=== PATIENT | male | born 1955 | race Caucasian/White ===

== ENCOUNTER → 2016-11-15 | Outpatient (CLI) | payer OTHER ==
[~2016-11-15] MED LIST: BENA5TAB2 PO; OMEP20CA16 PO; TRAM-174 PO
--- NOTE | 2016-11-15 21:29 | HKNOTE ---
DATE OF SERVICE: 11/15/2016 MAIN COMPLAINT: Pain in the right knee. HISTORY OF MAIN COMPLAINT: The patient is a 61-year-old male who sustained an injury to his right k topher 2 weeks ago while walking his dog. He twisted the knee. He felt a sudden loud snap in the knee as he tripped and twisted. The patient had sudden pain in the knee. He had to limp home. The kne e became very swollen. He ice packed it and elevated the leg as much as possible. By the next day, he could hardly walk. The knee has slowly improved but still is markedly incapacitating. He obtai audrey a brace for the leg (? from where). PRESENT COMPLAINTS: The pain in his right knee is mostly medial and posterior. The knee is not uns table. He thinks it may not extend fully at times. His pain varies between moderate to severe and is aggravated by weightbearing, walking and stair cli mbing. He does get rest pain and night pain. He takes Vicodin for the pain. Relaxing and ice pack ing help the pain. He does have a history of problems with his lower back which has been diagnosed as having "arthritis." He can walk no more than a block at a time using a cane. He limps all the t gurwinder. He does not have a shoe lift. He can clip his toenails and tie his shoelaces. PAST ORTHOPEDIC HISTORY: PREVIOUS ORTHOPEDIC OPERATIONS: Operative arthroscopy of the right knee with meniscectomy, 1999. L eft knee surgery (replacement), 2006. Right hand surgery, ____, 2004. PRIOR CORTISONE INTAKE: "Unsure." ALCOHOL INTAKE: One per day. He has never been an alcoholic. OTHER JOINT PROBLEMS: "My feet and knee kill me." BLOOD TESTS FOR ARTHRITIS: He is not sure if he has had blood tests for arthritis. 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 PAST MEDICAL HISTORY: Hypertension. PAST SURGICAL HISTORY: Left knee arthroscopy, 2006. Right knee arthroscopy, 1999. Right hand surg toni, 2004. Nasal septum surgery, 1977. DRUG ALLERGIES: NONE. MEDICATIONS: 1. Vicodin. 2. ____ for hypertension. FAMILY HISTORY: Father at 94. Mother at 95. Causes of are not given. SYSTEMS REVIEW: Varicose veins, gait disturbance from this knee injury, hypertension. He has had h istory of passing kidney stones. 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 Jax Kaufman [place], [place]. PHYSICAL EXAMINATION: GENERAL: The patient is an extremely fit-looking and youthful 61-year-old male. He comes in with a pair of crutches, and he has a long-leg knee immobilizer on the right leg. RIGHT KNEE: The right knee shows normal alignment. Active and passive extension lacks 3 degrees (ma rked pain on attempting to exceed). Active and passive flexion lacks 20 degrees (marked pain on atte mpting to exceed). The medial and lateral collateral ligaments are intact. Marked laxity, anterior c ruciate ligament. Lambert test is negative. There is 2+ effusion. Marked tenderness over the medial joint line. There is 2+ crepitus in the knee, none in the patella. There no scarring or cysts. The patella tracks normally. There is no tenderness on the articular surface of the patella or in the p atellar groove. The Q angle is normal. IMAGING: Plain x-rays of the right knee ordered by Dr. Gulshan Mora and obtained on 11/09/2016 are r eported as showin. Evidence of previous arthroscopic surgery. 2. Radial tear of the posterior horn of the medial meniscus. 3. Full-thickness tear of anterior cruciate ligament. 4. Small leaking popliteal cyst. 5. Sprain of the tibial collateral ligament. 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 He had a history of having had a previous arthroscopic surgery on the right knee in the year 1999. The knee made a full recovery. He does not recall if there was a tear of the anterior cruciate ligament at the time. His symptoms and clinical findings as well as MRI findings all lead to a diagnosis of a torn medial meniscus, torn anterior cruciate ligament and possibly a torn lateral meniscus. The patient is advised that he will need to have an arthroscopic operation on the knee. With regard to the torn anterior cruciate ligament, we do not focus on repairing it over the age of 45 or so. He has some arthritic change on the MRI scan. An x-ray of the knee will be obtained when I see him again to rule out the possibility of having to have another knee replacement operation. FINAL DIAGNOSES: 1. Torn medial meniscus and anterior cruciate ligament of the right knee. 2. Hypertension. 3. Status post previous right knee surgery. MANAGEMENT: The patient advised that he most certainly will need to have an arthroscopic operation on the right knee. The surgery was discussed with him. He has previously undergone arthroscopic squires rgery, and he is well aware of what that means. He will need to be cleared for surgery by Dr. Jax Kaufman after he selects a time and a date. Dictated By: RACHELL CERVANTES/MAYRA Conf#: [id number] DID#: [id number]
== END | disposition home or self-care (01) ==
LOC: HKI 16:17
DX: M25.561 Pain in right knee (principal); S83.241A Other tear of medial meniscus, current injury, right knee, initial encounter; I10 Essential (primary) hypertension
CPT/HCPCS: G0463

== ENCOUNTER → 2016-11-27 | Outpatient (CLI) | payer OTHER ==
--- NOTE | 2016-11-28 10:43 | RADRPT ---
PROCEDURE: XR right knee. CLINICAL INDICATION: Knee pain TECHNIQUE: AP weightbearing, lateral weightbearing and sunrise views are available for review. COMPARISON: None available FINDINGS: There is mild osteoarthrosis involving the medial tibial femoral compartment (mild joint space narro wing) and the patellofemoral compartment (minimal osteophytosis). There is otherwise normal mineralization, architecture and alignment. No fractures are identified. No osseous lesions are identified. The soft tissues are unremarkable. IMPRESSION: Mild osteoarthrosis involving the medial tibial femoral compartment (mild joint space narrowing) and the patellofemoral compartment (minimal osteophytosis). RPTAT: HGDB .Renny Addison MD, Date Time Electronically viewed and signed by .Renny Addison MD, on 11/28/2016 10:43 .B/
== END | disposition home or self-care (01) ==
LOC: HKI 14:51
DX: M25.561 Pain in right knee (principal); M17.11 Unilateral primary osteoarthritis, right knee
CPT/HCPCS: 20610; 73562; G0463

== ENCOUNTER 2018-09-20 19:14 | Emergency (ER) | payer OTHER ==
[~2018-09-20] VITALS: Ht 165.1 cm; Wt 67.4 kg
[~2018-09-20 19:14] MED LIST changes: -BENA5TAB2 PO; +BENA5TAB33 PO
[2018-09-20 19:20] VITALS: BP 188/94; PULSE 76; RESP 18; Ht 165.1 cm; Wt 67.4 kg
[2018-09-20] MEDS ORDERED: KETOROLAC 30 MG INJ IM STA (21:02)
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
== END 2018-09-20 22:21 | disposition home or self-care (01) ==
LOC: FTE 19:14
DX: M25.512 Pain in left shoulder (principal); I10 Essential (primary) hypertension; Z96.652 Presence of left artificial knee joint
CPT/HCPCS: 73030; 96372; 99284; J1885